=== PATIENT | female | born 2005 | race Caucasian/White ===

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

== ENCOUNTER 2023-02-24 16:40 | Emergency (ER) | payer BC ==
[2023-02-24] MEDS ORDERED: Diphtheria,Pertussis(Acell),Tetanus Vaccine 0.5 ML Syringe IM ONE (18:14)
[2023-02-24] MEDS ORDERED: Lidocaine 1% PF 2 ML SDV INJECT ONE (18:14)
== END 2023-02-24 18:44 | disposition home or self-care (01) ==
LOC: MW.ED 16:40
DX: S61.217A Laceration without foreign body of left little finger without damage to nail, initial encounter (principal); F17.210 Nicotine dependence, cigarettes, uncomplicated; W45.8XXA Other foreign body or object entering through skin, initial encounter
CPT/HCPCS: 12001; 99282; 99283; J3490